=== PATIENT | female | born 1990 ===

== ENCOUNTER 2024-08-27 16:40 | Inpatient (IN) | payer OTHER, SELFPAY ==
[2024-08-27 17:38] VITALS: BP 123/79; PULSE 80; RESP 18; TEMP 36.8; O2SAT 95
[2024-08-27 18:36] VITALS: BMI 27.7
--- NOTE | 2024-08-27 18:37 | PC.NURSE ---
Karla was admitted to M3 from [facility] on a CV for treatment of PTSD and Anxiety. Skin check, unremarkable, completed with STEPHANIE and Portia SHARP. Patient denies SI/HI/AVH at this time and feels safe on the unit. Placed on 15 minute checks for safety. Will pass to oncoming nurse.
[2024-08-27 19:47] VITALS: BP 131/82; PULSE 92; RESP 16; TEMP 36.3; O2SAT 98
[2024-08-27] MEDS: Ondansetron ODT 8 MG TAB.RAPDIS TRANSLINGU (20:04)
[2024-08-27] MEDS: Dicyclomine HCl 10 MG CAPSULE 20 MG PO (21:06)
[2024-08-27] MEDS: Cyclobenzaprine HCl 5 MG TABLET PO (21:06)
[2024-08-27] MEDS: Nicotine Polacrilex 2 MG GUM BUCCAL (21:10)
[2024-08-27] MEDS: hydrOXYzine HCL 25 MG TABLET PO (23:02)
[2024-08-27] MEDS: LORazepam 1 MG TABLET 2 MG PO (23:02)
[2024-08-28] MEDS: traZODone HCL 50 MG TABLET PO ×2 (02:34→21:52)
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
[2024-08-28] MEDS: Acetaminophen 325 MG TABLET 650 MG PO (06:13)
[2024-08-28] MEDS: Ondansetron ODT 8 MG TAB.RAPDIS TRANSLINGU ×2 (06:13→11:52)
[2024-08-28] MEDS: hydrOXYzine HCL 25 MG TABLET PO ×2 (06:17→18:54)
[2024-08-28 07:45] VITALS: BP 117/55; PULSE 78; RESP 16; TEMP 36.7; O2SAT 97
[2024-08-28] MEDS: polyethylene glycoL 3350 17 GM POWD.PACK PO (09:00)
[2024-08-28] MEDS: Dicyclomine HCl 10 MG CAPSULE 20 MG PO ×4 (09:00→21:53)
[2024-08-28] MEDS: Nicotine Polacrilex 2 MG GUM BUCCAL ×2 (10:01→22:52)
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
--- NOTE | 2024-08-28 13:28 | PC.NURSE ---
Patient would only take 10mg of Dicyclomine, donell Lopez ROLL TABLE OPERATOR updated.
[2024-08-28] MEDS: Cyclobenzaprine HCl 5 MG TABLET PO ×2 (15:04→21:49)
[2024-08-28] MEDS: clonazePAM 1 MG TABLET PO (16:21)
[2024-08-28] MEDS: NaPROXEN 500 MG TABLET PO (16:21)
[2024-08-28] MEDS: risperiDONE 1 MG TABLET PO (16:22)
[2024-08-28 17:40] VITALS: BP 195/63; PULSE 72; RESP 18; TEMP 36.6; O2SAT 100
[2024-08-28] MEDS: SUMAtriptan succinate 50 MG TABLET PO (18:59)
[2024-08-28 21:46] VITALS: BP 124/67; PULSE 69; RESP 14; TEMP 36.5; O2SAT 99
[2024-08-28] MEDS: clonazePAM 0.5 MG TABLET PO (21:51)
[2024-08-28] MEDS: Prazosin HCL 1 MG CAPSULE PO (21:53)
[2024-08-29 07:36] VITALS: BP 111/66; PULSE 74; RESP 14; TEMP 36.5; O2SAT 98
[2024-08-29 08:39] LABS: Estimated Average Glucose 103 mg/dL; Hemoglobin A1c % 5.2 % (<6.0); Total Hemoglobin (HGBA1C) 3599.9423 umol/L
[2024-08-29] MEDS: Dicyclomine HCl 10 MG CAPSULE 20 MG PO ×3 (08:42→21:58)
[2024-08-29] MEDS: clonazePAM 0.5 MG TABLET PO (08:42)
[2024-08-29] MEDS: polyethylene glycoL 3350 17 GM POWD.PACK PO (08:43)
[2024-08-29 08:49] LABS: Alanine Aminotransferase 23 U/L (0-31); Albumin Level 3.9 g/dL (3.5-5.0); Alkaline Phosphatase 60 U/L (39-117); Anion Gap 11 (12-20); Aspartate Amino Transferase 13 U/L (5-31); Bilirubin Total 0.1 mg/dL (0.0-1.0); Blood Urea Nitrogen 20 mg/dL (9-16); Calcium 9.1 mg/dL (8.4-10.2); Carbon Dioxide 27 mmol/L (22-29); Chloride 104 mmol/L (96-108); Cholesterol 182 mg/dL (<200); Creatinine Clr Calc Pharmacy 77.8; Estimated Glomerular Filt Rate > 60; Glucose Fasting 96 mg/dL (60-99); HDL Cholesterol 55 mg/dL (>40); LDL Cholesterol Calculated 109 mg/dL (<100); Potassium 4.1 mmol/L (3.3-5.1); Sodium 138 mmol/L (135-145); Total Protein 6.3 g/dL (6.5-8.0); Triglycerides 93 mg/dL (<150)
[2024-08-29 09:04] LABS: Thyroid Stimulating Hormone 2.35 uIU/mL (0.32-4.0)
[2024-08-29 09:19] LABS: Folate 6.5 ng/mL (> or = 4.0); Vitamin B12 444 pg/mL (200-900)
[2024-08-29] MEDS: Cyclobenzaprine HCl 5 MG TABLET PO ×2 (10:05→22:00)
[2024-08-29] MEDS: SUMAtriptan succinate 50 MG TABLET PO (11:24)
[2024-08-29] MEDS: Acetaminophen 325 MG TABLET 650 MG PO ×2 (11:25→22:15)
[2024-08-29] MEDS: hydrOXYzine HCL 25 MG TABLET PO ×2 (12:33→22:01)
[2024-08-29] MEDS: Nicotine Polacrilex 2 MG GUM BUCCAL ×2 (15:55→22:16)
[2024-08-29] MEDS: LORazepam 0.5 MG TABLET PO ×2 (15:57→22:00)
[2024-08-29] MEDS: Ondansetron ODT 8 MG TAB.RAPDIS TRANSLINGU ×2 (16:03→22:01)
[2024-08-29 20:00] VITALS: BP 140/83; PULSE 64; RESP 166; TEMP 36.9; O2SAT 100
--- NOTE | 2024-08-29 20:01 | HO.PSYCHPN ---
Subjective Subjective Date of Service: 08/29/24 Reason For Visit: Unspecified psychosis Subjective Notes: Conditional Voluntary Interim History: Pt slept most of the night. She reports she had one dose of risperidone and felt out of it. She also reports her face felt numbed. She reports she was very confused after it. We discussed stopping it. Pt then asks if new medication will be prescribed. this movie writer explained that would rather wait one day with medications she is familiar with before introducing a new one. Pt later asking to be switched from clonazepam to ativan, also claiming side effects, later again asked to switch back. Review of Systems Review of Systems Negative except for that which is stated in the HPI Mental Status Exam Mental Status Exam Narrative: Appearance: wearing casual clothing, good hygiene, in NAD Behavior: superficially cooperative, guarded Psychomotor: no agitation or retardation noted Speech: clear, regular rate/rhythm/volume, spontaneous TP: tangential at times TC: wanting treatment for anxiety Mood: anxious Affect: constricted, not as fearful as reported SI: denies HI: none VH/AH: appears at times despite denying it Delusions: ?persecutory delusions Insight/judgment: poor x 2. Memory/cog: alert, oriented x 4. grossly intact to conversational testing. Diagnostics Vital Signs (24Hr): Vital Signs - 24 hr 08/28/24 21:46 08/29/24 07:36 Temperature 97.7 F 97.7 F Pulse Rate 69 74 Respiratory Rate 14 14 Blood Pressure 124/67 111/66 Pulse Oximetry 99 98 Oxygen Delivery Method Room Air Room Air BMI result Body Mass Index 27.7 Labs 08/29/24 08:08 Labs: Laboratory Results - last 48 hr 08/29/24 08:08 Sodium 138 Potassium 4.1 Chloride 104 Carbon Dioxide 27 Anion Gap 11 L BUN 20 H Creatinine 0.88 Estim Creat Clear Calc 77.8 Estimated GFR > 60 Fasting Glucose 96 Estimat Average Glucose 103 Hemoglobin A1c % 5.2 Calcium 9.1 Total Bilirubin 0.1 AST 13 ALT 23 Alkaline Phosphatase 60 Total Protein 6.3 L Albumin 3.9 Triglycerides 93 Cholesterol 182 LDL Cholesterol, Calc 109 H HDL Cholesterol 55 Vitamin B12 444 Folate 6.5 TSH 2.35 Medications Medications Current Medications Acetaminophen (Acetaminophen 325 Mg Tablet) 650 mg PO Q6H PRN PRN Reason: Headache/Pain Mild Scale (1-3) Last Admin: 08/29/24 11:25 Dose: 650 mg Al Hydroxide/Mg Hydroxide (Magnesium Hydrox/Alum Hydrox 30 Ml Oral.Susp) 30 ml PO Q6H PRN PRN Reason: Heartburn/Nausea Cyclobenzaprine HCl (Cyclobenzaprine Hcl 5 Mg Tablet) 5 mg PO TID PRN PRN Reason: Muscle Spasm Last Admin: 08/29/24 10:05 Dose: 5 mg Dicyclomine HCl (Dicyclomine Hcl 10 Mg Capsule) 20 mg PO QIDACHS [facility] Last Admin: 08/29/24 17:16 Dose: Not Given Hydroxyzine HCl (Hydroxyzine Hcl 25 Mg Tablet) 25 mg PO Q6H PRN PRN Reason: Anxiety Last Admin: 08/29/24 12:33 Dose: 25 mg Lorazepam (Lorazepam 0.5 Mg Tablet) 0.5 mg PO TID PRN PRN Reason: Anxiety Last Admin: 08/29/24 15:57 Dose: 0.5 mg Magnesium Hydroxide (Milk Of Magnesia 30 Ml Oral.Susp) 30 ml PO DAILY PRN PRN Reason: Constipation Nicotine (Nicotine 14 Mg Patch.Td24) 14 mg TRANSDERMA DAILY [facility] Last Admin: 08/29/24 18:39 Dose: Not Given Nicotine Polacrilex (Nicotine Polacrilex 2 Mg Gum) 2 mg BUCCAL Q2H PRN PRN Reason: Nicotine Cravings Last Admin: 08/29/24 15:55 Dose: 2 mg Nicotine Polacrilex (Nicotine Polacrilex 2 Mg Gum) 2 mg BUCCAL Q2H PRN PRN Reason: Nicotine Cravings Olanzapine (Olanzapine 5 Mg Tablet) 5 mg PO Q6H PRN PRN Reason: agitation Ondansetron HCl (Ondansetron Odt 8 Mg Tab.Rapdis) 8 mg TRANSLINGU TIDAC PRN PRN Reason: Nausea and Vomiting Last Admin: 08/29/24 16:03 Dose: 8 mg Polyethylene Glycol (Polyethylene Glycol 3350 17 Gm Powd.Pack) 17 gm PO DAILY [facility] Last Admin: 08/29/24 08:43 Dose: 17 gm Prazosin HCl (Prazosin Hcl 1 Mg Capsule) 1 mg PO BEDTIME [facility]; Protocol Last Admin: 08/28/24 21:53 Dose: 1 mg Risperidone (Risperidone 1 Mg Tablet) 1 mg PO BID [facility] Last Admin: 08/29/24 09:06 Dose: Not Given Sumatriptan Succinate (Sumatriptan Succinate 50 Mg Tablet) 50 mg PO DAILY PRN PRN Reason: Migraine Headache Last Admin: 08/29/24 11:24 Dose: 50 mg Trazodone HCl (Trazodone Hcl 50 Mg Tablet) 50 mg PO BEDTIME MRX1 PRN PRN Reason: Insomnia Last Admin: 08/28/24 21:52 Dose: 50 mg Allergies Allergies Allergy/AdvReac Type Severity Reaction Status Date / Time gluten Allergy Hives Verified 08/27/24 17:50 lactose Allergy Hives Verified 08/27/24 17:50 Assessment & Plan Assessment & Plan (1) Mood disorder: Status: Acute Code(s): F39 - Unspecified mood [affective] disorder Plan continue clonazepam, can offer risperidone or dc ,prazosin at night. very somatic. Reason for continued inpatient stay Substantial Risk for: inability to function Time Spent With Patient Time: Total time managing care of this patient today ____ minutes.
[2024-08-29 21:44] VITALS: BP 129/63; PULSE 79
[2024-08-29] MEDS: Prazosin HCL 1 MG CAPSULE PO (22:00)
[2024-08-29] MEDS: traZODone HCL 50 MG TABLET PO (22:16)
[2024-08-30] MEDS: Nicotine Polacrilex 2 MG GUM BUCCAL ×3 (01:22→22:20)
[2024-08-30] MEDS: traZODone HCL 50 MG TABLET PO (01:25)
[2024-08-30] MEDS: Dicyclomine HCl 10 MG CAPSULE 20 MG PO ×3 (06:48→22:01)
[2024-08-30] MEDS: Nicotine 14 MG PATCH.TD24 TRANSDERMA (06:48)
[2024-08-30] MEDS: polyethylene glycoL 3350 17 GM POWD.PACK PO (06:59)
[2024-08-30] MEDS: LORazepam 0.5 MG TABLET PO ×3 (06:59→22:03)
--- NOTE | 2024-08-30 09:23 | MHC.CLN ---
Addendum entered by Kat Haider RD 08/30/24 15:55: ALERTED BY NURSING THAT PATIENT NOT GETTING FOODS THAT SHE HAS ORDERED. EX. ORDERED MEATLOAF BUT ITEM IS NOT GLUTEN FREE. MET WITH PATIENT TO DISCUSS FOOD CHOICES AND GLUTEN AND LACTOSE ALLERGY. PATIENT NOT ABLE TO FOCUS ON CONVERSATION. CONVEYED FOOD PREFERENCES TO DINING SERVICES. DISLIKES PORK, WILL EAT FISH AND EGGS. PROVIDE GLUTEN FREE BREAD, MUFFIN, COOKIE REQUESTED. NURSING AWARE OF CONVERSATION WITH PATIENT. RD AVAILABLE BY CONSULT TO FOLLOW UP WITH PATIENT IF REQUESTED. Original Note: NUTRITION CONSULT FOR UNSURE OF RECENT WEIGHT LOSS . NO PRIOR WEIGHT HX VIEWED. BMI=27.7, OVERWEIGHT. PLEASE CONSULT RD IF PO INTAKE POOR X 3 DAYS. NO ADDITIONAL NUTRITION INTERVENTIONS AT THIS TIME.
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
[2024-08-30] MEDS: hydrOXYzine HCL 25 MG TABLET PO ×2 (10:23→22:03)
[2024-08-30] MEDS: Cyclobenzaprine HCl 5 MG TABLET PO ×2 (10:25→22:02)
[2024-08-30] MEDS: Benztropine Mesylate 1 MG TABLET PO (14:10)
[2024-08-30] MEDS: QUEtiapine Fumarate 25 MG TABLET PO (14:10)
[2024-08-30 22:00] VITALS: BP 138/78; PULSE 79; RESP 16; TEMP 36.4; O2SAT 98
[2024-08-30] MEDS: Prazosin HCL 1 MG CAPSULE PO (22:02)
[2024-08-30] MEDS: SUMAtriptan succinate 50 MG TABLET PO (22:07)
[2024-08-30] MEDS: Ondansetron ODT 8 MG TAB.RAPDIS TRANSLINGU (23:15)
--- NOTE | 2024-08-31 03:10 | PC.NURSE ---
Patient intermittently visible throughout the night, continues to be somatically focused, endorsing anxiety. She is demanding of medication for anxiety despite already receiving it, and declining available PRN's. Per RN report, patient refused scheduled (2100) seroquel and cogentin despite offering multiple times up through midnight. Patient approached nurses station at 0300 requesting cogentin, as it would relieve her symptoms. This video games storywriter attempted to explain to patient that these medications were scheduled and it is outside the window to be able to administer. She continues to be argumentative over medications. This video games storywriter encouraged patient to call and speak with human rights officer and speak with doctor in morning.
[2024-08-31] MEDS: LORazepam 0.5 MG TABLET PO ×4 (04:26→21:57)
[2024-08-31] MEDS: hydrOXYzine HCL 25 MG TABLET PO ×3 (04:26→18:46)
[2024-08-31] MEDS: Nicotine Polacrilex 2 MG GUM 4 MG BUCCAL ×4 (04:28→22:01)
[2024-08-31] MEDS: Ondansetron ODT 8 MG TAB.RAPDIS TRANSLINGU ×2 (04:30→18:45)
[2024-08-31] MEDS: Acetaminophen 325 MG TABLET 650 MG PO ×2 (04:33→20:08)
[2024-08-31] MEDS: Dicyclomine HCl 10 MG CAPSULE 20 MG PO ×4 (08:29→20:11)
[2024-08-31] MEDS: Benztropine Mesylate 1 MG TABLET PO (08:29)
[2024-08-31] MEDS: Nicotine 14 MG PATCH.TD24 TRANSDERMA (08:31)
[2024-08-31] MEDS: polyethylene glycoL 3350 17 GM POWD.PACK PO (08:32)
[2024-08-31] MEDS: Cyclobenzaprine HCl 5 MG TABLET PO (08:40)
[2024-08-31 08:43] VITALS: BP 150/67; PULSE 104; RESP 18; TEMP 36.5; O2SAT 99
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
[2024-08-31] MEDS: OXcarbazepine 150 MG TABLET PO ×2 (14:22→21:58)
[2024-08-31] MEDS: Lactase TABLET 1 TAB PO (17:17)
[2024-08-31] MEDS: Albuterol Sulfate 90 MCG 8 GM INHALER 1 PUFF INHALE (19:28)
[2024-08-31 19:56] VITALS: BP 135/67; PULSE 94; RESP 14; TEMP 36.9; O2SAT 94
[2024-08-31] MEDS: SUMAtriptan succinate 50 MG TABLET PO (20:10)
[2024-08-31] MEDS: Benztropine Mesylate 0.5 MG TABLET PO (20:11)
[2024-08-31 21:54] VITALS: BP 155/84; PULSE 89
[2024-08-31] MEDS: Prazosin HCL 1 MG CAPSULE PO (21:56)
[2024-08-31] MEDS: Melatonin 3 MG TABLET PO (21:57)
[2024-08-31] MEDS: traZODone HCL 50 MG TABLET PO (21:57)
[2024-09-01 07:20] VITALS: BP 129/65; PULSE 90; RESP 16; TEMP 36.6; O2SAT 98
[2024-09-01] MEDS: Albuterol Sulfate 90 MCG 8 GM INHALER 1 PUFF INHALE ×3 (07:58→21:24)
[2024-09-01] MEDS: SUMAtriptan succinate 50 MG TABLET PO (08:50)
[2024-09-01] MEDS: Nicotine 14 MG PATCH.TD24 TRANSDERMA (08:51)
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
[2024-09-01] MEDS: LORazepam 0.5 MG TABLET PO ×2 (10:17→17:06)
[2024-09-01] MEDS: polyethylene glycoL 3350 17 GM POWD.PACK PO ×2 (10:27→10:29)
[2024-09-01] MEDS: Dicyclomine HCl 10 MG CAPSULE 20 MG PO ×4 (10:44→22:03)
[2024-09-01] MEDS: Lactase TABLET 1 TAB PO ×3 (10:44→17:06)
[2024-09-01] MEDS: Benztropine Mesylate 0.5 MG TABLET PO ×2 (10:44→22:03)
[2024-09-01 10:54] VITALS: BP 138/89; PULSE 92
[2024-09-01] MEDS: hydrOXYzine HCL 25 MG TABLET PO ×2 (11:12→22:12)
[2024-09-01] MEDS: Ondansetron ODT 8 MG TAB.RAPDIS TRANSLINGU ×2 (11:53→23:08)
[2024-09-01] MEDS: Acetaminophen 325 MG TABLET 650 MG PO ×2 (11:56→20:21)
[2024-09-01] MEDS: Cyclobenzaprine HCl 5 MG TABLET PO ×3 (12:04→23:11)
[2024-09-01 19:35] VITALS: BP 133/82; PULSE 109; RESP 12; TEMP 36.2; O2SAT 98
[2024-09-01] MEDS: Nicotine Polacrilex 2 MG GUM 4 MG BUCCAL (20:21)
[2024-09-01 22:00] VITALS: BP 131/65; PULSE 88
[2024-09-01] MEDS: Prazosin HCL 1 MG CAPSULE PO (22:04)
[2024-09-01] MEDS: Melatonin 3 MG TABLET PO (22:04)
[2024-09-02 07:00] VITALS: BMI 28.8
[2024-09-02 07:55] VITALS: BP 120/65; PULSE 87; RESP 18; TEMP 36.8; O2SAT 98
[2024-09-02] MEDS: polyethylene glycoL 3350 17 GM POWD.PACK PO (07:58)
[2024-09-02] MEDS: Lactase TABLET 1 TAB PO ×2 (07:58→11:56)
[2024-09-02] MEDS: Dicyclomine HCl 10 MG CAPSULE 20 MG PO ×2 (07:58→11:56)
[2024-09-02] MEDS: Benztropine Mesylate 0.5 MG TABLET PO (07:59)
[2024-09-02] MEDS: LORazepam 0.5 MG TABLET PO ×2 (08:01→11:56)
[2024-09-02] MEDS: Cyclobenzaprine HCl 5 MG TABLET PO (08:01)
[2024-09-02] MEDS: SUMAtriptan succinate 50 MG TABLET PO (08:02)
[2024-09-02] MEDS: Ondansetron ODT 8 MG TAB.RAPDIS TRANSLINGU (08:03)
[2024-09-02] MEDS: Nicotine 14 MG PATCH.TD24 TRANSDERMA (08:03)
[2024-09-02] MEDS: Albuterol Sulfate 90 MCG 8 GM INHALER 1 PUFF INHALE (08:03)
[2024-09-02] MEDS: Nicotine Polacrilex 2 MG GUM 4 MG BUCCAL (08:08)
[2024-09-02] MEDS: Acetaminophen 325 MG TABLET 650 MG PO (09:56)
[2024-09-02] MEDS: hydrOXYzine HCL 25 MG TABLET PO (10:02)
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
== END 2024-09-02 12:00 | disposition home or self-care (01) | DRG 885 ==
PROVIDERS: Social Worker; Admitting Provider Psychiatry & Neurology Psychiatry; Visit Provider Psychiatry & Neurology Psychiatry
DX: F39 Unspecified mood [affective] disorder (principal); F43.10 Post-traumatic stress disorder, unspecified; F19.90 Other psychoactive substance use, unspecified, uncomplicated; Z87.891 Personal history of nicotine dependence; Z79.899 Other long term (current) drug therapy
CPT/HCPCS: 36415; 80053; 80061; 82607; 82746; 83036; 84443

== ENCOUNTER → 2024-08-27 16:40 | Outpatient (BNV) | payer SELFPAY | PROVIDERS: Admitting Provider Psychiatry & Neurology Psychiatry; Visit Provider Student in an Organized Health Care Education/Training Program | DX: Z02.2 Encounter for examination for admission to residential institution (principal) | CPT/HCPCS: 99429 ==

== ENCOUNTER → 2024-08-27 16:40 | Outpatient (BNV) | payer MEDICAID, SELFPAY | PROVIDERS: Admitting Provider Psychiatry & Neurology Psychiatry; Visit Provider Social Worker | DX: F39 Unspecified mood [affective] disorder (principal) | CPT/HCPCS: 90792; 99231; 99232; 99238 ==